=== PATIENT | male | born 1970 | race Caucasian/White ===

== ENCOUNTER 2023-05-08 17:45 | Emergency (ER) | payer OTHER, SELFPAY ==
[2023-05-08 17:54] VITALS: BP 125/83; PULSE 105; RESP 18; TEMP 36.2; O2SAT 98; BMI 34.2
--- NOTE | 2023-05-08 18:11 | DI.RAD.S_ITS ---
PROCEDURE: XR TOE LT MIN 2V INDICATIONS: toe ?fx, nail injury TECHNIQUE: 3 views of the 1st toe(s) acquired. COMPARISON: None. FINDINGS: Bones: Comminuted fracture lines can be seen involving the distal aspect of the distal phalanx of the great toe. Incidental note is made of a bipartite medial sesamoid bone. There is a partially fused os tibiale externum. Soft tissues: Soft tissue swelling is seen. IMPRESSION: Distal great toe fracture. Dictated by: Albaro Almazan M.D. on 05/08/2023 at 17:54 Approved by: Albaro Almazan M.D. on 05/08/2023 at 17:55
[2023-05-08] MEDS: TET,DIPH,PERTUSS(ACELL),VAC/PF 0.5 ML SYRINGE IM (18:17)
--- NOTE | 2023-05-08 18:29 | ED.LOWEXIN ---
HPI - Extremity Injury (Lower) General Chief Complaint: Extremity Injury, Lower Stated Complaint: Broken great toe on left Time Seen by Provider: 05/08/23 17:55 Source: patient Mode of arrival: Ambulatory Limitations: no limitations History of Present Illness HPI Narrative: This is a 52-year-old male with history of diet-controlled diabetes, gout, hypertension, mood disorder with complaint of injury to his left great toe. Patient states earlier in the week he accidentally dropped a ramp on his toe. He injured the nail and has had persistent pain and now some redness and some purulent drainage. He states the pain has not been worsening he states it throbs at times but has been controlled and not increasing. Denies fevers or chills. He is had some mild nausea he denies any other systemic symptoms. Patient states the nail does have little bit of movement at the base and has been draining a little bit of purulent fluid from that area. He expressed some earlier today. He went to an urgent care and was referred here. Patient states redness has spread a little bit about half a cm down the toe. He denies any allergies to medications. No tobacco, occasional alcohol, occasional marijuana but no illicit or IV drugs. 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 [facility] Related Data Previous Rx's Medication Instructions Recorded cephalexin 500 mg capsule 500 mg PO Q6H 10 days #40 caps 05/08/23 Allergies Allergy/AdvReac Type Severity Reaction Status Date / Time No Known Drug Allergies Allergy Verified 05/08/23 17:57 Review of Systems Review of Systems ROS Unobtainable: All systems reviewed & are unremarkable except as noted in HPI and below Patient History Social History Smoking Status: Never smoker Smoking Status: Never smoker alcohol intake frequency: a few times a week Substance Use Type: marijuana Exam Narrative Exam Narrative: GENERAL: Alert and oriented x three, well-appearing male in mild distress HEENT: Head normocephalic, atraumatic, EOMI, pupils reactive, face symmetric, moist mucous membranes NECK: Supple, full range of motion CARDIOVASCULAR: Regular rate and rhythm without murmurs, rubs or gallops. RESPIRATORY: Breath sounds equal bilaterally, no wheezes rales or rhonchi. ABDOMEN: Soft, nontender. Normoactive bowel sounds all 4 quadrants. No guarding or rebound, rigidity, no mass EXTREMITIES: Normal range of motion, no clubbing. Neurovascularly intact. Patient has some erythema of the left great toe, it tracks about a 0.5 cm past the nail proximally. Slightly tender to touch but able to palpate. There is some slight edema. Cap refill less than 5 seconds. Patient has the top layer was given abraded but no subcutaneous tissue exposure. The nail is intact but the proximal portion does flex up from the nail bed. Patient has a very small amount of purulent fluid that was drained with palpation. Culture was collected and sent. No other cuts, lesions or changes appreciated. NEUROLOGICAL: Cranial nerves II through XII grossly intact. Moving all extremities SKIN: Warm, dry, no petechiae, no rashes or lesions other than above. Initial Vital Signs Initial Vital Signs: Vital Signs Temperature 97.2 F L 05/08/23 17:54 Pulse Rate 105 H 05/08/23 17:54 Respiratory Rate 18 05/08/23 17:54 Blood Pressure 125/83 05/08/23 17:54 Pulse Oximetry 98 05/08/23 17:54 Oxygen Delivery Method Room Air 05/08/23 17:54 Course Orders Ordered: Discontinued Medications Cephalexin HCl (Cephalexin 250 Mg Capsule) 500 mg PO NOW ONE Stop: 05/08/23 19:19 Last Admin: 05/08/23 19:39 Dose: 500 mg Documented By: Diphtheria/Tetanus/Acell Pertussis (Tet,Diph,Pertuss(Acell),Vac/Pf 0.5 Ml Syringe) 0.5 ml IM .ONCE ONE Stop: 05/08/23 17:58 Last Admin: 05/08/23 18:17 Dose: 0.5 ml Documented By: RLS Vital Signs Vital signs: Vital Signs - 8 hr 05/08/23 17:54 Temperature 97.2 F L Pulse Rate 105 H Respiratory Rate 18 Blood Pressure 125/83 Pulse Oximetry 98 Oxygen Delivery Method Room Air MDM - Extremity Injury (Lower) Imaging Data Extremity x-ray #1: Radiologist's Impression: [address] [address] XRay Report Signed Patient: Al Guzman MR#: [id number] : 1970 Acct:[id number] Age/Sex: 52 / M Date of Service: 05/08/23 Loc: ED Accession Number: [id number] ?? Procedure: XR toe LT min 2V Ordering Provider: Rakel Lisa D.O. PROCEDURE:? XR TOE LT MIN 2V ? INDICATIONS:? toe ?fx, nail injury ? TECHNIQUE:? 3 views of the 1st toe(s) acquired.? ? COMPARISON:? None. ? FINDINGS:? ? Bones:? Comminuted fracture lines can be seen involving the distal aspect of the distal phalanx of the great toe. ? Incidental note is made of a bipartite medial sesamoid bone.? There is a partially fused os tibiale externum. ? Soft tissues:? Soft tissue swelling is seen. ? ? IMPRESSION:? Distal great toe fracture. ? ? Dictated by: Albaro Almazan M.D. on 05/08/2023 at 17:54 ? ? Approved by: Albaro Almazan M.D. on 05/08/2023 at 17:55? MDM Narrative Medical decision making narrative: 52-year-old male with injury to his great toe appears to have community fracture of the distal phalanx of the great toe, patient does have a nail injury is technically an open fracture. He does to be developing a small amount of infection and there is some mild purulent drainage. Nail is overall intact but does flex a little bit at the proximal nail bed. After discussion with patient would keep the nail in place to protect the nail bed general. Does not flex easily in the majority is still present underneath the edge of the skin. Discussed with patient can do Epsom salts once or 2 times daily to encourage drainage, was started on oral antibiotic and patient given orthopedic follow-up close follow-up. X-ray does not show any obvious osteomyelitis but discussed with patient x-ray is only a screening exam but my suspicion is lower with his short onset of symptoms. Patient does have some risk factors with prediabetes that is diet-controlled. Patient feels comfortable with this plan. He is traveling in an RV but staying in the area for the next 3 weeks. Discussed return precautions signs and symptoms to watch for and reasons to return such as worsening infection, drainage pain or fevers. Discharge Plan Departure Patient Disposition: Home Clinical Impression: Open fracture of left great toe Instructions: DI for Open Fracture Activity Restrictions/Additional Instructions: Follow-up with orthopedic surgery later this week for recheck. Call Wednesday morning for an appointment. There are offices in [place] as well as [place]. You do have a fracture of the toe on the left foot because of the injury to the nail this is technically an open fracture and does need follow-up to make sure that is healing properly. A culture has been sent, this is pending if it shows resistance to the antibiotics prescribed you will be contacted in 48-72 hours once it is completed. Take oral antibiotics until completed. Prescription was printed. You may take Tylenol up to a 1000 mg every 6 hours and/or ibuprofen up to 600 mg every 6 hours as needed for pain. Wound Care: Keep wound(s) clean and dry. Wash twice daily with soap and water only. Pat dry. Do not use over the counter products (alcohol or peroxide)on the wounds unless instructed by a physician, you can use a topical triple antibiotic ointment to the affected area 2-3 times daily. If wound condition worsens (increased/expanding redness, developing fluid blisters, or worsening pain), either contact your doctor for an urgent re-assessment , or return to the Emergency Department. Return to the Emergency Department for any new or worsening symptoms. Return if fever greater than 100.4 Fahrenheit, increased swelling, increasing pain or worsening symptoms such as increased discharge or spreading redness. Prescriptions: New cephalexin 500 mg capsule 500 mg PO Q6H 10 Days Qty: 40 0RF Referrals: Aditi Haile MD [Physician] - Stand Alone Forms: Patient Portal/API
[2023-05-08] MEDS: cephALEXin 250 MG CAPSULE 500 MG PO (19:39)
[2023-05-08 19:44] VITALS: BP 122/85; PULSE 75; RESP 16; TEMP 37.2; O2SAT 97
== END 2023-05-08 19:45 | disposition home or self-care (01) ==
PROVIDERS: Emergency Provider Emergency Medicine
DX: S92.422B Displaced fracture of distal phalanx of left great toe, initial encounter for open fracture (principal); W20.8XXA Other cause of strike by thrown, projected or falling object, initial encounter; Z23 Encounter for immunization; B95.7 Other staphylococcus as the cause of diseases classified elsewhere; Z16.19 Resistance to other specified beta lactam antibiotics
CPT/HCPCS: 73660; 87070; 87075; 87077; 87147; 87186; 87205; 90471; 99283; 90715

== ENCOUNTER 2023-05-14 17:08 | Emergency (ER) | payer OTHER, SELFPAY ==
[2023-05-14 17:34] VITALS: BP 126/88; PULSE 70; RESP 17; TEMP 36.6; O2SAT 98; BMI 34.2
[2023-05-14 19:09] LABS: Add Manual Diff / Slide Review NO; Basophils Absolute Auto 100 /uL (0-100); Basophils Percent Auto 0.7 % (0-2); Eosinophils Absolute Auto 200 /uL (0-450); Eosinophils Percent Auto 1.8 % (2-4); Hematocrit 40.5 % (41-53); Hemoglobin 14.2 g/dL (13.5-17.5); Lymphocytes Absolute Auto 1600 /uL (1100-4500); Lymphocytes Percent Auto 16.2 % (25-40); Mean Corpuscular HGB Conc 35.1 % (30-36); Mean Corpuscular Hemoglobin 30.9 PG (26-34); Mean Corpuscular Volume 87.8 fL (80-100); Monocytes Absolute Auto 800 /uL (0-900); Monocytes Percent Auto 8.5 % (3-14); Neutrophils Absolute Auto 7100 /uL (1500-7000); Neutrophils Percent Auto 72.8 % (50-75); Red Blood Cell Count 4.61 X10^6/uL (4.5-5.9); Red Cell Distribution Width 13.6 % (11.6-14.8); White Blood Cell Count 9.8 X10^3/uL (4.5-11.0)
[2023-05-14 19:16] LABS: Alanine Aminotransferase 45 IU/L (<50); Albumin 4.6 g/dL (3.5-5.0); Albumin Globulin Ratio 1.3 (1.0-2.8); Alkaline Phosphatase 64 U/L (38-126); Aspartate Aminotransferase 40 IU/L (17-59); BUN Creatinine Ratio 20.7 (6-22); Bilirubin Total 0.5 mg/dL (0.2-1.3); Blood Urea Nitrogen 18 mg/dL (9-20); Calcium 8.5 mg/dL (8.4-10.2); Carbon Dioxide 24 mmol/L (22-32); Chloride 106 mmol/L (98-107); Estimated Glomerular Filt Rate > 60 mL/min (>60); Globulin 3.5 g/dL (1.7-4.1); Glucose 108 mg/dL (70-100); HEMOLYSIS 41 (0-50); Lipase 118 U/L (23-300); Potassium 4.7 mmol/L (3.4-5.1); Sodium 140 mmol/L (137-145); Total Protein 8.1 g/dL (6.3-8.2)
[2023-05-14 19:23] LABS: Platelet Count 208 X10^3/uL (150-400)
[2023-05-14 20:21] VITALS: PULSE 75; O2SAT 99
[2023-05-14 20:30] VITALS: BP 119/79; PULSE 71; O2SAT 97
[2023-05-14 21:00] VITALS: BP 121/78; PULSE 69; O2SAT 96
--- NOTE | 2023-05-14 21:12 | ED_ITS ---
HPI - General Adult General Chief complaint: Abdominal Pain Stated complaint: Dizzy, Stomach issues, Vomiting Time Seen by Provider: 05/14/23 20:45 Source: patient Mode of arrival: Ambulatory History of Present Illness HPI narrative: Patient is a 52-year-old male who was seen here in the emergency department several days ago for an issue with his right great toe. He was started on antibiotics. Apparently there were cultures that were obtained and he stated that he received a call stating that he needed a new antibiotic but he is not pick this medication upper started it yet. He actually thinks that the redness maybe improving somewhat. He states that today he had an episode of lightheadedness when he was walking his dog. Has had some diarrhea since then. States that he had a ?knot? in his stomach. No urinary symptoms. No fevers. No chest pain or shortness of breath. Did feel somewhat lightheaded during the event. He currently states he feels better. Related Data Previous Rx's Medication Instructions Recorded cephalexin 500 mg capsule 500 mg PO Q6H 10 days #40 caps 05/08/23 sulfamethoxazole 800 1 tab PO BID 7 days #14 tabs 05/14/23 mg-trimethoprim 160 mg tablet (Bactrim DS) Allergies Allergy/AdvReac Type Severity Reaction Status Date / Time No Known Drug Allergies Allergy Verified 05/14/23 17:34 Review of Systems Constitutional Constitutional: Reports system reviewed and no additional complaints, except as documented Cardiovascular Cardiovascular: Reports system reviewed and no additional complaints, except as documented Respiratory Respiratory: Reports system reviewed and no additional complaints, except as doc umented Gastrointestinal Gastrointestinal: Reports system reviewed and no additional complaints, except as documented Integumentary/Breasts Skin/Breast: Reports system reviewed and no additional complaints, except as documented Neurologic Neurologic: Reports system reviewed and no additional complaints, except as documented Hematologic/Lymphatic On Anticoagulants: No Patient History Social History Smoking Status: Never smoker Smoking Status: Never smoker alcohol intake frequency: a few times a week Substance Use Type: marijuana Exam Initial Vital Signs Initial Vital Signs: Vital Signs Temperature 97.9 F 05/14/23 17:34 Pulse Rate 70 05/14/23 17:34 Respiratory Rate 17 05/14/23 17:34 Blood Pressure 126/88 05/14/23 17:34 Pulse Oximetry 98 05/14/23 17:34 Oxygen Delivery Method Room Air 05/14/23 17:34 Const General: cooperative, comfortable and No ill appearing HENMT Head: normal to inspection and normocephalic Resp Effort & Inspection: normal respiratory effort Cardio Rate: regular rate Skin Other: Redness around the base of the right great toe. Does have a subungual hematoma. Neuro General: patient alert, patient awake and moves all extremities Extrem General: normal to inspection and capillary refill normal Course Orders Ordered: Discontinued Medications Ondansetron HCl (Ondansetron 4 Mg Odt) 4 mg PO NOW PRN PRN Reason: Nausea And Vomiting Ondansetron HCl (Ondansetron 4 Mg/2 Ml Inj) 4 mg IV NOW PRN PRN Reason: Nausea And Vomiting Vital Signs Vital signs: Vital Signs - 8 hr 05/14/23 20:30 05/14/23 20:30 05/14/23 21:00 Pulse Rate 71 Blood Pressure 119/79 121/78 Pulse Oximetry 97 Oxygen Delivery Method 05/14/23 21:00 05/14/23 21:30 05/14/23 21:30 Pulse Rate 69 65 Blood Pressure 110/61 Pulse Oximetry 96 96 Oxygen Delivery Method Room Air Medical Decision Making Medical Records Medical records reviewed: Yes I reviewed the patient's medical records. Lab Data Lab results reviewed: Yes I reviewed the patient's lab results. 05/14/23 18:55 05/14/23 18:55 Labs: Lab Results 05/14/23 05/14/23 Range/Units 18:55 18:55 WBC 9.8 (4.5-11.0) X10^3/uL RBC 4.61 (4.5-5.9) X10^6/uL Hgb 14.2 (13.5-17.5) g/dL Hct 40.5 L (41-53) % MCV 87.8 (80-100) fL MCH 30.9 (26-34) PG MCHC 35.1 (30-36) % RDW 13.6 (11.6-14.8) % Plt Count 208 (150-400) X10^3/uL Neut % (Auto) 72.8 (50-75) % Lymph % (Auto) 16.2 L (25-40) % [place] % (Auto) 8.5 (3-14) % Eos % (Auto) 1.8 L (2-4) % Baso % (Auto) 0.7 (0-2) % Neut # (Auto) 7100 H (9497-8642) /uL Lymph # (Auto) 1600 (4529-3866) /uL [place] # (Auto) 800 (0-900) /uL Eos # (Auto) 200 (0-450) /uL Baso # (Auto) 100 (0-100) /uL Sodium 140 (137-145) mmol/L Potassium 4.7 (3.4-5.1) mmol/L Chloride 106 (98-107) mmol/L Carbon Dioxide 24 (22-32) mmol/L BUN 18 (9-20) mg/dL Creatinine 0.87 (0.66-1.25) mg/dL Estimated GFR > 60 (>60) mL/min BUN/Creatinine Ratio 20.7 (6-22) Glucose 108 H (70-100) mg/dL Calcium 8.5 (8.4-10.2) mg/dL Total Bilirubin 0.5 (0.2-1.3) mg/dL AST 40 (17-59) IU/L ALT 45 (<50) IU/L Alkaline Phosphatase 64 (38-126) U/L Total Protein 8.1 (6.3-8.2) g/dL Albumin 4.6 (3.5-5.0) g/dL Globulin 3.5 (1.7-4.1) g/dL Albumin/Globulin Ratio 1.3 (1.0-2.8) Lipase 118 (23-300) U/L ECG Data Attestation: I personally reviewed and interpreted this ECG as follows: Interpretation: Sinus rhythm Ventricular rate is 65 Normal axis Normal QRS Normal QTC No ST T wave changes MDM Narrative Medical decision making narrative: Patient's workup here in the emergency department is relatively unremarkable. I did review his prior notes and it does appear that the culture that was obtained is not susceptible to Keflex and the plan was to start him on Bactrim. His GI complaints very well could be because of the antibiotics he is taken. No indication for any radiologic studies today. The wound on his right toe does appear to be improving but there is still some redness consistent with cellulitis. Will discharge patient home with strict return precautions. He expressed understanding and agreement with plan. Discharge Plan Departure Patient Disposition: Home Clinical Impression: Cellulitis Instructions: Cellulitis Activity Restrictions/Additional Instructions: I recommend that you stop taking the Keflex because based on the culture that was obtained the last time you were here the bacteria that is present is not susceptible to this. We are going to start you on a new antibiotic. Please start taking it as directed. Return to emergency department for new or worsening symptoms. Prescriptions: New sulfamethoxazole-trimethoprim [Bactrim DS] 800-160 mg tablet 1 tab PO BID 7 Days Qty: 14 0RF No Action cephalexin 500 mg capsule 500 mg PO Q6H 10 Days Qty: 40 0RF Stand Alone Forms: Patient Portal/API
[2023-05-14 21:30] VITALS: BP 110/61; PULSE 65; O2SAT 96
== END 2023-05-14 21:49 | disposition home or self-care (01) ==
PROVIDERS: Emergency Medicine; Emergency Provider Emergency Medicine
DX: L03.032 Cellulitis of left toe (principal); R10.9 Unspecified abdominal pain
CPT/HCPCS: 36415; 80053; 83690; 85025; 93005; 93010; 99283; 99284